=== PATIENT | female | born 2000 | race African-American/Black ===

== ENCOUNTER 2020-08-23 23:49 | Emergency (ER) | payer MEDICAID, OTHER ==
[~2020-08-23] VITALS: Ht 162.6 cm; Wt 63.0 kg
[2020-08-23 23:49] VITALS: BP 114/72
--- NOTE | 2020-08-23 23:51 | NUR ---
PT AAOX4. BIBSELF C/O RT RING FINGER PAIN/SWOLLEN FROM TABLE FALLING ON IT AT 2PM TODAY. PLACED IN BED 4 ON MONITOR AND PULSE OX.VSS. AWAITING ER MD FOR EVAL.
== END 2020-08-24 02:29 | disposition home or self-care (01) ==
LOC: ER 23:52
DX: S60.454A Superficial foreign body of right ring finger, initial encounter (principal); J45.909 Unspecified asthma, uncomplicated; X58.XXXA Exposure to other specified factors, initial encounter; Y93.89 Activity, other specified; Y92.89 Other specified places as the place of occurrence of the external cause; Y99.8 Other external cause status